=== PATIENT | male | born 1990 | race Caucasian/White ===

== ENCOUNTER 2016-08-18 15:01 | Emergency (ER) | payer OTHER ==
[2016-08-18] MEDS ORDERED: NS 1,000 ML IV ONE ×2 (15:42)
[2016-08-18] MEDS ORDERED: ONDANSETRON 4 MG/2 ML VIAL IVP ONE (15:42)
--- NOTE | 2016-08-18 15:45 | EDPHY ---
H & P Time Seen by Provider: 08/18/16 15:30 HPI/ROS: CHIEF COMPLAINT: Nausea and vomiting HISTORY OF PRESENT ILLNESS: This 26-year-old man is visiting from [place] and came out on Saturday to visit his brother. They went to a restaurant called [employer] and the next day he had multiple episodes of nausea and vomiting. He has a continued over the past 3 days better improving and today he only had nausea and vomiting twice. No coffee-ground emesis or hematemesis no diarrhea or abdominal pain. He developed a mild headache today after his vomiting illness which was not thunderclap in onset or worst of life. REVIEW OF SYSTEMS: Eye: no change in vision ENT: no sore throat Cardiac: no chest pain or syncope Pulmonary: no cough or SOB Abdomen: HPI Musculoskeletal: Chronic low back pain unchanged from typical Skin: no rash Neuro: HPI Constitutional: no fever : no urinary symptoms A comprehensive 10 point review of systems is otherwise negative aside from elements mentioned in the history of present illness. PAST MEDICAL HISTORY: Anxiety and low back pain Social history: Last alcohol was a beer last night, visiting from [place] General Appearance: Alert and conversant, cooperative. Eyes: No scleral icterus. ENT, Mouth: Normal mucous membranes. Respiratory: Normal respiratory effort, breath sounds equal, lungs are clear to auscultation. Cardiovascular: Regular rate and rhythm. Gastrointestinal: Abdomen is soft and non tender. Neurological: Alert and oriented x3. Normally conversant. Face symmetric, normal movement and sensation in all extremities. Skin: Warm and dry, no rashes. Musculoskeletal: No peripheral edema and no joint swelling. Psychiatric: Not agitated. Emergency Department course/MDM: Likely food related or viral nausea and vomiting illness. I think it is unlikely to be to to altitude sickness as he is staying with his brother here in town and has not been higher than the altitude in [place]. He has mild dehydration clinically IV normal saline 2 L for vomiting, Zofran 4 mg IV, chemistry panel. I think acute surgical process is unlikely. 1652: Patient re-examined, feels well, normal electrolytes with the exception of a slightly low venous bicarbonate consistent with dehydration. Smoking Status: Never smoked Constitutional: Initial Vital Signs Temperature (C) 37.4 C 08/18/16 15:12 Heart Rate 76 08/18/16 15:12 Respiratory Rate 18 08/18/16 15:12 Blood Pressure 100/53 L 08/18/16 15:12 O2 Sat (%) 95 08/18/16 15:12 O2 Delivery Mode Room Air Allergies/Adverse Reactions: No Known Allergies Allergy (Unverified 08/18/16 15:11) Home Medications: Medication Instructions Recorded Ondansetron Odt [Zofran Odt] 4 mg PO Q4PRN #6 tab 08/18/16 Zoloft 50mg (*) 08/18/16 Medical Decision Making Differential Diagnosis: Differential diagnosis considered for nausea and vomiting including but not limited to gastroenteritis, gastritis, appendicitis, and medication side effect. - Data Points Laboratory Results: Laboratory Results 08/18/16 15:36 08/18/16 15:36 Sodium 134 mEq/L mEq/L (134-144) Potassium 4.1 mEq/L mEq/L (3.5-5.2) Chloride 101 mEq/L mEq/L (97-110) Carbon Dioxide 20 mEq/l L mEq/l (22-31) Anion Gap 13 mEq/L mEq/L (8-16) BUN 17 mg/dL mg/dL (7-23) Creatinine 0.7 mg/dL mg/dL (0.7-1.3) Estimated GFR > 60 Glucose 80 mg/dL mg/dL (70-100) Calcium 9.0 mg/dL mg/dL (8.5-10.4) Medications Given: Discontinued Medications Sodium Chloride (Ns) 1,000 mls @ 0 mls/hr IV ONCE ONE PRN Reason: Wide Open Stop: 08/18/16 15:43 Last Admin: 08/18/16 15:48 Dose: 1,000 mls Sodium Chloride (Ns) 1,000 mls @ 0 mls/hr IV ONCE ONE PRN Reason: Wide Open Stop: 08/18/16 15:43 Last Admin: 08/18/16 15:51 Dose: 1,000 mls Ondansetron HCl (Zofran) 4 mg IVP EDNOW ONE Stop: 08/18/16 15:43 Last Admin: 08/18/16 15:51 Dose: 4 mg Departure - Departure Disposition: Home, Routine, Self-Care Clinical Impression: Dehydration Nausea & vomiting Qualifiers: Vomiting type: unspecified Vomiting Intractability: non-intractable Qualified Code(s): R11.2 - Nausea with vomiting, unspecified Condition: Good Instructions: Acute Nausea and Vomiting (ED) Referrals: Miko Ackerman MD [Medical Doctor] - As per Instructions Prescriptions: Ondansetron Odt [Zofran Odt] 4 mg PO Q4PRN #6 tab
[2016-08-18 16:27] LABS: ANION GAP 13 mEq/L (8-16); CARBON DIOXIDE 20 mEq/l (22-31); CHLORIDE 101 mEq/L (97-110); CREATININE 0.7 mg/dL (0.7-1.3); GLOMERULAR FILTRATION RATE > 60; GLUCOSE 80 mg/dL (70-100); POTASSIUM 4.1 mEq/L (3.5-5.2); SODIUM 134 mEq/L (134-144)
[2016-08-18 16:58] VITALS: BP 121/67; PULSE 88; RESP 14; TEMP 98.1; O2SAT 94
== END 2016-08-18 16:58 | disposition home or self-care (01) ==
DX: R11.2 Nausea with vomiting, unspecified (principal); E86.0 Dehydration
CPT/HCPCS: 96374; J2405